=== PATIENT | female | born 1975 | race Asian ===

== ENCOUNTER 2022-01-08 22:10 | Emergency (ER) | payer MEDICAID ==
[~2022-01-08] VITALS: Ht 162.6 cm; Wt 72.7 kg
[2022-01-08 22:14] VITALS: BP 164/114
== END 2022-01-08 22:58 | disposition left against medical advice (07) ==
LOC: EMS 22:12
DX: Z53.21 Procedure and treatment not carried out due to patient leaving prior to being seen by health care provider (principal)